=== PATIENT | female | born 1950 ===

== ENCOUNTER 2024-03-20 11:15 | Inpatient (IN) | payer OTHER ==
[~2024-03-20] VITALS: Ht 61 cm; Wt 69.4 kg
[2024-03-20] MEDS ORDERED: ESCITALOPRA5 MG/5 ML (12:35)
[2024-03-20] MEDS ORDERED: RYTARY ER 23.71 EACH PO (12:35)
[2024-03-20] MEDS ORDERED: CANDESARTAN-HC1 EACH PO (12:36)
[2024-03-20] MEDS ORDERED: XARELTO20 MG (12:37)
[2024-03-20] MEDS ORDERED: TIROSINT13 MCG (12:37)
[2024-03-20] MEDS ORDERED: [UNRECOGNIZED DRUG - OTHER] (12:38)
[2024-03-20] MEDS ORDERED: OMEGA-31000 MG PO (12:38)
[2024-03-20] MEDS ORDERED: D3-200050 MCG PO (12:38)
[2024-03-27] MEDS ORDERED: ZOFRAN8 MG PO (07:24)
[2024-03-27] MEDS ORDERED: PERCOCET 5-3251 EACH PO (07:24)
[2024-03-27] MEDS ORDERED: BACTRIM DS TAB1 EACH PO (07:24)
[2024-03-27] MEDS ORDERED: MEDROLPACK PO (07:24)
[2024-03-27] MEDS ORDERED: COLACE100 MG PO (07:24)
[2024-03-27] MEDS ORDERED: NEURONTIN800 MG PO (07:25)
[2024-03-27] MEDS ORDERED: GABAPENTIN100 M2 PO (07:25)
[2024-03-27] MEDS ORDERED: 0.9 % SODIUM CHLORIDE 1,000 ML IV SCH (07:30)
[2024-03-27] MEDS ORDERED: ENALAPRILAT DIHYDRATE 1.25 MG/ML VIAL IV PRN (07:30)
[2024-03-27] MEDS ORDERED: PROMETHAZINE HCL 50 MG/ML AMPUL IM PRN (07:30)
[2024-03-27] MEDS ORDERED: HEMOSTATIC MATRIX WITH THROMBIN KIT TOP ONE (08:30)
[2024-03-27] MEDS ORDERED: VANCOMYCIN HCL 1,000 MG VIAL IR ONE (08:30)
[2024-03-27] MEDS ORDERED: METHYLPREDNISOLONE ACETATE 40 MG/ML VIAL IM ONE (08:30)
[2024-03-27] MEDS ORDERED: VANCOMYCIN HCL 1,000 MG VIAL IV ONE (08:30)
[2024-03-27] MEDS ORDERED: METHYLPREDNISOLONE SOD SUCC 125 MG VIAL IV ONE ×2 (08:30)
[2024-03-27] MEDS ORDERED: METHYLPREDNISOLONE SOD SUCC 125 MG VIAL IV SCH (09:00)
[2024-03-27] MEDS ORDERED: VANCOMYCIN HCL 1,000 MG VIAL IV SCH (09:00)
[2024-03-27] MEDS ORDERED: TAMSULOSIN HCL 0.4 MG CAP PO SCH (09:00)
[2024-03-27] MEDS ORDERED: DOCUSATE SODIUM 100MG CAP PO SCH (09:00)
[2024-03-27] MEDS ORDERED: MORPHINE SULFATE 4 MG/ML CARTRIDGE IV SCH (09:00)
[2024-03-27] MEDS ORDERED: FAMOtidine 20 MG TABLET PO SCH (09:00)
[2024-03-27] MEDS ORDERED: MORPHINE SULFATE 2 MG/ML CARTRIDGE IV ONE ×2 (10:55→11:25)
[2024-03-27 12:40] VITALS: BP 126/85; O2SAT 94
[2024-03-27 14:37] VITALS: O2SAT 95
[2024-03-27 16:00] VITALS: BP 140/83; O2SAT 96
[2024-03-27 17:00] VITALS: O2SAT 97
[2024-03-27] MEDS ORDERED: ACETAMINOPHEN 500 MG GEL..CAP PO SCH (20:00)
[2024-03-27] MEDS ORDERED: GABAPENTIN 800 MG TABLET PO SCH (21:00)
[2024-03-27 21:21] VITALS: O2SAT 97
[2024-03-28] VITALS: BP 138/84; O2SAT 94
[2024-03-28] MEDS ORDERED: SODIUM CHLORIDE 0.45 % 1,000 ML IV SCH
[2024-03-28] MEDS ORDERED: LEVOTHYROXINE SODIUM 50 MCG TABLET PO SCH (06:00)
[2024-03-28] MEDS ORDERED: OxyCODONE HCL 5 MG TABLET (ROXICODONE) PO PRN (06:01)
[2024-03-28 06:04] VITALS: O2SAT 90
[2024-03-28 07:00] LABS: HEMATOCRIT 30.7 % (36.0-45.00); HEMOGLOBIN 10.1 g/dL (12.0-15.00); MEAN CELL VOLUME 88.3 fL (80.00-100.00); MEAN CORPUSCULAR HGB CONC 32.8 g/dl (32.0-36.0); PLATELET COUNT 147 K/uL (150-450); RED BLOOD COUNT 3.47 M/uL (4.00-6.00)
[2024-03-28 07:33] LABS: CALCIUM 8.6 mg/dL (8.5-10.1); CREATININE SERUM 0.95 mg/dL (0.55-1.02); GFR 57.5; POTASSIUM 4.13 mEq/L (3.5-5.1)
[2024-03-28 08:19] VITALS: BP 120/81; O2SAT 95
[2024-03-28] MEDS ORDERED: ENOXAPARIN SODIUM 40 MG/0.4 ML SYRINGE SUBCUTANEO SCH (09:00)
[2024-03-28] MEDS ORDERED: ESCITALOPRAM 10 MG PO SCH (09:00)
[2024-03-28 09:58] VITALS: O2SAT 97
[2024-03-28 15:53] VITALS: BP 93/67; O2SAT 96
[2024-03-29 00:30] VITALS: BP 125/73; O2SAT 97
[2024-03-29 08:20] VITALS: BP 126/81; O2SAT 96
== END 2024-03-29 11:41 | disposition home or self-care (01) | DRG 402 ==
LOC: O/R 03-27 05:13 → SURH 03-27 07:00 → O/R 03-27 10:45 → SURH 03-27 11:15 → SURG 03-27 11:54 → SURH 03-27 11:55
PROVIDERS: ADMIT Orthopaedic Surgery Orthopaedic Surgery of the Spine; ATTEND Orthopaedic Surgery Orthopaedic Surgery of the Spine
PROC: 0SG0071 Fusion of Lumbar Vertebral Joint with Autologous Tissue Substitute, Posterior Approach, Posterior Column, Open Approach (ICD-10-PCS; 2024-03-27)
PROC: 0QB30ZZ Excision of Left Pelvic Bone, Open Approach (ICD-10-PCS; 2024-03-27)
PROC: 0ST20ZZ Resection of Lumbar Vertebral Disc, Open Approach (ICD-10-PCS; 2024-03-27)
PROC: 07DR0ZZ Extraction of Iliac Bone Marrow, Open Approach (ICD-10-PCS; 2024-03-27)
PROC: 4A1104G Monitoring of Peripheral Nervous Electrical Activity, Intraoperative, Open Approach (ICD-10-PCS; 2024-03-27)
PROC: 4A12X4Z Monitoring of Cardiac Electrical Activity, External Approach (ICD-10-PCS; 2024-03-27)
PROC: XRGB0R7 Fusion of Lumbar Vertebral Joint using Custom-Made Anatomically Designed Interbody Fusion Device, Open Approach, New Technology Group 7 (ICD-10-PCS; principal; 2024-03-27 07:00)
DX: M43.16 Spondylolisthesis, lumbar region (principal); M48.062 Spinal stenosis, lumbar region with neurogenic claudication; G20.A1 Parkinson's disease without dyskinesia, without mention of fluctuations; I10 Essential (primary) hypertension